=== PATIENT | female | born 1975 | race Two or more races ===

== ENCOUNTER → 2017-01-24 | Outpatient (REF) | payer MEDICAID ==
[2017-01-24 21:59] LABS: BACTERIA, URINE NONE SEEN; HYALINE CAST, URINE NONE SEEN /lpf (0-1); MICROSCOPIC EXAM PERFORMED; RBC, URINE NONE SEEN /hpf (0-3); SQUAMOUS EPITHELIAL CELL URINE SMALL AMOUNT /hpf (SMALL AMT); WBC, URINE NONE SEEN /hpf (0-3)
== END ==
LOC: M SMT 15:16
PROVIDERS: ATTEND Specialist
DX: N39.498 Other specified urinary incontinence (principal)